=== PATIENT | male | born 1975 | race Caucasian/White ===

== ENCOUNTER 2018-09-11 11:23 | Outpatient (CLI) | payer SELFPAY ==
--- NOTE | 2018-09-11 12:06 | PC.NURSE ---
HERE FOR DOT PHYSICAL
== END 2018-09-11 12:25 | disposition home or self-care (01) ==
PROVIDERS: Visit Provider Nurse Practitioner Family
DX: Z02.4 Encounter for examination for driving license (principal)

== ENCOUNTER 2020-05-13 08:49 | Emergency (ER) | payer MEDICAID, SELFPAY ==
--- NOTE | 2020-05-13 08:55 | HMH.EDGENADL ---
ED Disposition Clinical Impression: Contusion of left shoulder Qualifiers: Encounter type: initial encounter Qualified Code(s): S40.012A - Contusion of left shoulder, initial encounter Rotator cuff injury Qualifiers: Encounter type: initial encounter Laterality: left Qualified Code(s): S46.002A - Unspecified injury of muscle(s) and tendon(s) of the rotator cuff of left shoulder, initial encounter Disposition: Home, Self-Care Condition on Discharge: Good Instructions: DI for Rotator Cuff Injury, How to Use a Sling Additional Instructions: Sling, ice 30 minutes 4-5 times a day. Follow-up with orthopedics, Dr. Duenas. Call for appointment. Ibuprofen or [place] for pain. Additional instructions for CONTROLLED SUBSTANCES: You have been prescribed a medication that is a controlled substance. Controlled substances include pain medications known as opiates and sedative nerve medications known as benzodiazepines. Tramadol, fioricet, and gabapentin are also controlled substances. Some common opiates include: Codeine (such as Tylenol #3) Hydrocodone (Vicodin, Lortab, Lorcet, [place]) Oxycodone (Percocet, Percodan, Oxycodone, Oxy IR) Some common benzodiazepines include: Diazepam (Valium) Lorazepam (Ativan) Alprazolam (Xanax) Clonazepam (Klonopin) Oxazepam (Serax) All of these controlled substances are highly addictive and frequently abused. Misuse can and frequently does lead to addiction as well as overdose and . Medication should be stored in a locked cabinet or other secure storage unit. Do not store the medication in a motor vehicle. Short term supplies, 3 days or less, are prescribed because of the highly addictive nature of the medication. Any of the controlled substance medication NOT taken should be disposed of properly and NOT SAVED. The recommended method of disposing of unused medications is: Place the medicines in a sealable plastic bag. If the medicine is a solid, crush it or add water to dissolve it. Add something undesirable (cat litter, coffee grounds, etc.) Dispose of sealed bag in household trash Do not flush or pour unused medicines down a sink or drain. Controlled substances should not be shared, given away or sold. Because of the addictive nature and frequent abuse, these medications are sometimes stolen. These medications should be kept in a safe place where they cannot be stolen. Do not keep them in your car or purse. Lost or stolen prescriptions for controlled substances WILL NOT BE REFILLED in this emergency department, regardless of whether a police report was filed. Prescriptions: Hydrocod/Acet 5/325 mg [[place] 5/325mg tablet] 1 tab PO Q6HP PRN #10 tab PRN Reason: Pain Transmission Status: Sent to [facility] Ibuprofen [Ibuprofen 800mg Tab] 800 mg PO Q8HP PRN #15 tab PRN Reason: Moderate Pain Transmission Status: Pending to [facility] Referrals: Wilbert Sparks MD [Primary Care Provider] - Cachorro Duenas MD [Staff Physician] - - Critical Care Critical Care Time: No Attestation: On , the high probability of a clinically significant, sudden or life threatening deterioration of the following system(s) required my full and direct attention, intervention and personal management. The time I documented below is in addition to time spent performing reported procedures but includes the following listed in this critical care notation. Medical Decision Making - Binh Inquiry Pt receiving controlled substance: Yes Binh was queried for this patient: Yes Reference #:: [id number] Risks and benefits of using a controlled substance: were discussed with pt by me Comment: 0 rxs. Vital Signs: 05/13/20 08:59 Temperature 98.3 F Temperature Source Oral Pulse Rate [Left Brachial] 66 Respiratory Rate 16 Blood Pressure [Right Arm] 143/98 H Blood Pressure Mean [Right Arm] 113 Blood Pressure Position [Right Arm] Sitting 02 Sat by Pulse Oximetry 98 Oxygen Deli
[2020-05-13 08:59] VITALS: BP 143/98; PULSE 66; RESP 16; TEMP 36.8; O2SAT 98; BMI 25.0
--- NOTE | 2020-05-13 09:02 | XR_ITS ---
PROCEDURE: XR SHOULDER LT MIN 2V CLINICAL INDICATION: injury Posttraumatic pain COMPARISON: [id number] VIEWS from 07/27/2016 FINDINGS: No acute fracture or dislocation. Small sub chondral cyst is present at the distal aspect of the clavicle. IMPRESSION: No acute findings. Dictated by: Adolph Bhagat MD 05/13/2020 11:40 Electronically signed by Adolph Bhagat MD in [place] 05/13/2020 11:40
--- NOTE | 2020-05-13 09:19 | PC.NURSE ---
Pt to rad
[2020-05-13 09:51] VITALS: BP 172/74; PULSE 78; RESP 16; TEMP 36.6; O2SAT 98
== END 2020-05-13 09:58 | disposition home or self-care (01) ==
PROVIDERS: Emergency Provider Emergency Medicine; PCP Internal Medicine Adolescent Medicine
DX: S46.002A Unspecified injury of muscle(s) and tendon(s) of the rotator cuff of left shoulder, initial encounter (principal); W55.12XA Struck by horse, initial encounter; Y92.79 Other farm location as the place of occurrence of the external cause; E78.5 Hyperlipidemia, unspecified; I10 Essential (primary) hypertension; E03.9 Hypothyroidism, unspecified; Z87.442 Personal history of urinary calculi
CPT/HCPCS: 73030; 99283

== ENCOUNTER → 2020-06-02 13:13 | Outpatient (CLI) | payer MEDICAID, SELFPAY ==
--- NOTE | 2020-06-02 13:13 | MR_ITS ---
PROCEDURE: MR SHOULDER LT WO CON CLINICAL INDICATION: left shoulder rotator cuff injury Horse fell on patient x2 wks. Some pain when raising arm above head. Pain when lifting weight. Prior X-Ray 05-13-20 COMPARISON: XR SHOULDER LT MIN 2V from 05/13/2020 TECHNIQUE: Routine multiplanar multi echo sequences are performed without gadolinium enhancement. FINDINGS: There are osteoarthritic changes of the acromioclavicular joint with subacromial stenosis with a subacromial space measuring approximately 5 mm. There is some impingement upon the superior aspect the musculotendinous junction of the supraspinatus from bony hypertrophy at the acromioclavicular joint. The infraspinatus tendon is intact. Tendinopathy/tendinosis suspected at the supraspinatus tendon with focal increased T2 signal involving the deep layers of the distal aspect of the supraspinatus tendon at the greater tubercle consistent with a partial tear. A full-thickness or complete tear is not felt to be present. There is no evidence of tendon retraction. The subscapularis and teres minor tendons are intact. No obvious labral tear. The bicipital tendon is in place. No fracture or bone bruise. IMPRESSION: Partial tear of the distal aspect of the supraspinatus tendon with subacromial stenosis and impingement upon the musculotendinous junction of the supraspinatus. Dictated by: Adolph Bhagat MD 06/03/2020 11:39 Electronically signed by Adolph Bhagat MD in [place] 06/03/2020 11:39
== END ==
PROVIDERS: PCP Internal Medicine Adolescent Medicine; Visit Provider Orthopaedic Surgery
DX: S46.002A Unspecified injury of muscle(s) and tendon(s) of the rotator cuff of left shoulder, initial encounter (principal)
CPT/HCPCS: 73221

== ENCOUNTER 2020-07-09 09:00 | Outpatient (RCR) | payer MEDICAID, SELFPAY ==
--- NOTE | 2020-06-30 11:59 | HMH.PTOPEV ---
PT Outpatient Evaluation Rehab PT Outpatient Evaluation Start: 06/30/20 11:32 Freq: Status: Active Protocol: Document 06/30/20 11:33 OSCAR (Rec: 06/30/20 11:58 [email or web address] [id number]) Electronically Signed By Vincenzo Cid, PT 06/30/20 11:33 Outpatient Therapy Subjective History Subjective History Pt. is a 44 year old male who presents to outpatient PT clinic w/ complaints of activity dependent and subacute LUE shldr. P! of traumatic onset for 1 month. Pt. reports I lost a fight with a horse. Pt . reports his arm(LUE) being jerked in an upward motion while holding onto a horses' halter. Recent diagnostic imaging positive for partial tear of the distal aspect of supraspinatus tendon, SA stenosis, and an impingement upon the musculotendinous junction of the supraspinatus. Pt. reports symptom relief post injection. Pt. RTMD 08/19. 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 Current medications included for Hypertension, Hyperlipidemia, and my thyroid (pt. unable to recall prescription names at this time). PMH includes Hypertension, Hyperlipidemia, and extracorporeal shock wave lithotripsy or ESWL. Chief Complaint Pain Symptom Type Ache,Dull Symptoms Relieved By Rest/Positioning,Ice Symptoms Aggravated By Lifting Prior Functional Limitations None Current Functional Limitations Reaching,Lifting,Driving, Sleeping Symptom Description Activity Dependent Level of pain today (0-10) 0 Pain scale - at its best (0-10) 0 Pain scale - at its worst (0-10) 7 Shoulder/Elbow Eval Shoulder Objective Measurements Palpation Tenderness tenderness shoulder exam standard left tenderness over the bicipital tendon left shoulder exam standard tenderness over the SA bursa shoulder left exam standard Shoulder Palpat
== END 2020-07-28 12:05 | disposition home or self-care (01) ==
LOC: PT.CARL 09:00
PROVIDERS: PCP Internal Medicine Adolescent Medicine; Visit Provider Orthopaedic Surgery
DX: S49.92XA Unspecified injury of left shoulder and upper arm, initial encounter (principal); M75.112 Incomplete rotator cuff tear or rupture of left shoulder, not specified as traumatic; M75.52 Bursitis of left shoulder; M75.42 Impingement syndrome of left shoulder; M67.912 Unspecified disorder of synovium and tendon, left shoulder
CPT/HCPCS: 97014; 97110; 97163; G0283

== ENCOUNTER 2022-07-05 09:36 | Emergency (ER) | payer MEDICAID, SELFPAY ==
[2022-07-05 09:37] VITALS: BP 169/97; PULSE 60; RESP 18; TEMP 36.6; O2SAT 99; BMI 26.9
[2022-07-05 09:41] VITALS: BP 169/97; PULSE 52; RESP 18; O2SAT 98
[2022-07-05 10:01] VITALS: BP 135/79; PULSE 51; RESP 18; O2SAT 97
--- NOTE | 2022-07-05 10:02 | PC.NURSE ---
LULU HOLLAND at
--- NOTE | 2022-07-05 10:05 | CT_ITS ---
FINAL REPORT CLINICAL HISTORY: pain, no injury c/o lt side neck pain FINDINGS: Axial CT images of the cervical spine were obtained without contrast. Sagittal and coronal reformatted images were also obtained. This study was performed with techniques to keep radiation doses as low as reasonably achievable (ALARA). Individualized dose reduction techniques using automated exposure control or adjustment of mA and/or kV according to the patient's size were employed. There is no evidence of fracture or dislocation. There is mild kyphosis centered at C4. There is mild and moderate degenerative change. There is no evidence of canal stenosis. No paraspinous soft tissue abnormality is seen. Limited images of the upper thorax are unremarkable. C2-3: No significant central canal stenosis or neural foraminal narrowing. C3-4: A disc osteophyte complex is present with moderate right and severe left neural foraminal narrowing. C4-5: An annular disc bulge is present. Bilateral uncovertebral osteophytes are present with mild right neural foraminal narrowing. C5-6: A disc osteophyte complex is present with severe bilateral neural foraminal narrowing. C6-7: An annular disc bulge is present with mild bilateral neural foraminal narrowing. C7-T1: No significant central canal stenosis or neural foraminal narrowing. IMPRESSION: Multilevel degenerative disc disease and spondylosis with areas of neural foraminal narrowing. Reviewed, Interpreted and Dictated by Reza Rogers III, MD Transcribed by Brooklyn Peña Authenticated and [facility]
--- NOTE | 2022-07-05 10:14 | PC.NURSE ---
meds given no new complaints , waiting for radiology
--- NOTE | 2022-07-05 10:24 | PC.NURSE ---
pt gone to ct
--- NOTE | 2022-07-05 10:24 | HMH.EDNECK ---
ED Disposition Clinical Impression: Strain of neck muscle Qualifiers: Encounter type: initial encounter Qualified Code(s): S16.1XXA - Strain of muscle, fascia and tendon at neck level, initial encounter Disposition: Home, Self-Care Condition on Discharge: Good Instructions: Neck Sprain Prescriptions: Ibuprofen [Ibuprofen 800mg Tablet] 800 mg PO TIDP PRN #20 tab PRN Reason: Moderate Pain Transmission Status: Pending to [facility] methocarbamoL [Methocarbamol] 750 mg PO QID 7 Days #28 tab Transmission Status: Pending to [facility] Referrals: Provider,Referral, [Primary Care Provider] - - Critical Care Critical Care Time: No Attestation: On 07/05/22, the high probability of a clinically significant, sudden or life threatening deterioration of the following system(s) required my full and direct attention, intervention and personal management. The time I documented below is in addition to time spent performing reported procedures but includes the following listed in this critical care notation. Medical Decision Making - Medical Records Medical records reviewed: Yes: I reviewed the patient's medical records. - Binh Inquiry Pt receiving controlled substance: No Vital Signs: 07/05/22 09:37 07/05/22 09:41 07/05/22 10:01 Temperature 97.9 F Temperature Source Oral Pulse Rate 52 L 51 L Pulse Rate [Radial] 60 Respiratory Rate 18 18 18 Blood Pressure 169/97 H 135/79 Blood Pressure [Right Arm] 169/97 H Blood Pressure Mean 121 97 Blood Pressure Mean [Right Arm] 121 Blood Pressure Source [Right Arm] Automatic Cuff Blood Pressure Position [Right Arm] Sitting 02 Sat by Pulse Oximetry 99 98 97 Oxygen Delivery Method Room Air 07/05/22 11:00 07/05/22 11:30 Temperature Temperature Source Pulse Rate 42 L 42 L Pulse Rate [Radial] Respiratory Rate Blood Pressure 131/74 128/72 Blood Pressure [Right Arm] Blood Pressure Mean 96 90 Blood Pressure Mean [Right Arm] Blood Pressure Source [Right Arm] Blood Pressure Position [Right Arm] 02 Sat by Pulse Oximetry 95 96 Oxygen Delivery Method Orders (Tests/Meds): ED MEDICATIONS Discontinued Medications Generic Name Dose Route Start Last Admin Trade Name Freq PRN Reason Stop Dose Admin Ibuprofen 800 mg 07/05/22 10:05 07/05/22 10:12 Ibuprofen 400 Mg Tablet PO 07/05/22 10:06 800 mg ONCE ONE Administration Methocarbamol 1,000 mg 07/05/22 10:05 07/05/22 10:12 Methocarbamol 500mg Tablet PO 07/05/22 10:06 1,000 mg ONCE STA Administration - CT Data CT Scan: C-Spine Time Received: 11:[address] Reviewed: Yes: I have reviewed the patient's CT results, I have viewed the radiologist's interpretation Findings Narrative: IMPRESSION: Multilevel degenerative disc disease and spondylosis with areas of neural foraminal narrowing. - Reevaluation(s) Time: 11:49 Reevaluation #1: On reevaluation, patient is feeling better. CT did show some degenerative changes, however no acute process. Patient be placed on short course analgesia and muscle relaxers. Needs follow-up with PCP in 48 hours. Given strict return precautions. Verbalized understanding. Medical Decision Narrative: 46-year-old male presenting with some left-sided neck pain. Findings are consistent with torticollis likely secondary to muscle strain. There is no obvious deformity. No neurologic deficit. Patient treated symptomatically. Work-up initiated. Neck Pain/Injury HPI - General Chief Complaint: Neck Pain/Injury Stated Complaint: Neck pain Time Seen by Provider: 07/05/22 09:40 Limitations: No Limitations Description of Symptoms (Recalled from ER Triage Doc. by RN): PT REPORTS POPPING HIS NECK ON TUESDAY. CONTINUES TO HAVE PAIN WITH MOVEMENT - History of Present Illness HPI Narrative: 46-year-old male presented to the emergency department with some neck pain on his left side. The patient states that
--- NOTE | 2022-07-05 10:25 | PC.NURSE ---
PT TO XR AT THIS TIME
--- NOTE | 2022-07-05 10:31 | PC.NURSE ---
pt back from CT
[2022-07-05 11:00] VITALS: BP 131/74; PULSE 42; O2SAT 95
[2022-07-05 11:30] VITALS: BP 128/72; PULSE 42; O2SAT 96
--- NOTE | 2022-07-05 11:33 | PC.NURSE ---
rounded on pt, no needs at this time
[2022-07-05 11:57] VITALS: BP 128/72; PULSE 51; RESP 18; TEMP 36.6; O2SAT 96
== END 2022-07-05 11:58 | disposition home or self-care (01) ==
PROVIDERS: Emergency Provider Emergency Medicine
DX: S16.1XXA Strain of muscle, fascia and tendon at neck level, initial encounter (principal); M50.33 Other cervical disc degeneration, cervicothoracic region; I10 Essential (primary) hypertension; E78.5 Hyperlipidemia, unspecified; E07.9 Disorder of thyroid, unspecified; M79.10 Myalgia, unspecified site; Z79.1 Long term (current) use of non-steroidal anti-inflammatories (NSAID); Z79.899 Other long term (current) drug therapy
CPT/HCPCS: 72125; 99285

== ENCOUNTER → 2022-08-04 06:52 | Outpatient (CLI) | payer MEDICAID, SELFPAY ==
[2022-08-04 18:40] LABS: Basophils # 0.1 K/mm3 (0-0.2); Basophils % 1.4 % (0.1-2.0); Eosinophils # 0.3 K/mm3 (0.0-0.4); Eosinophils % 4.3 % (0.1-12.0); Hematocrit 46.9 % (42.0-52.0); Hemoglobin 14.7 g/dL (14.1-18.0); Lymphocytes # 2.2 K/mm3 (0.7-4.5); Lymphocytes % 28.9 % (10-50); Mean Corpuscular HGB Conc 31.3 g/dL (31.8-35.4); Mean Corpuscular Volume 92.8 fl (80-94); Mean Platelet Volume 9.2 fl (7.4-10.4); Monocytes # 0.6 K/mm3 (0.1-1.0); Monocytes % 7.5 % (1.7-9.3); Neutrophils # 4.5 K/mm3 (1.8-7.8); Neutrophils % 57.9 % (37.0-80.0); Platelet Count 408 K/mm3 (142-424); Red Blood Count 5.06 M/mm3 (4.60-6.20); Red Cell Distribution Width 13.1 % (11.5-17.5); White Blood Count 7.8 K/mm3 (4.8-10.8)
[2022-08-04 18:47] LABS: Alanine Aminotransferase 25 U/L (12-78); Albumin Level 4.4 g/dl (3.5-5.0); Albumin/Globulin Ratio 1.6 (1.1-1.8); Alkaline Phosphatase 62 U/L (38-126); Anion Gap 12.2 mEq/L (5-15); Aspartate Amino Transferase 45 U/L (17-59); Bilirubin,Total 0.5 mg/dl (0.2-1.3); Blood Urea Nitrogen 17 mg/dl (9-20); Calcium 9.1 mg/dl (8.4-10.2); Carbon Dioxide 29 mmol/L (22.0-30.0); Chloride 105 mmol/L (98-107); Chol/HDL Ratio 6.9 (1-3.5); Cholesterol 221 mg/dl (140-200); Estimated Glomerular Filt Rate 72 ml/min (>60); GFR (African American) 87 ML/MIN (>60); Globulin 2.7 g/dL (1.3-3.2); Glucose 77 mg/dl (74-100); HDL Cholesterol 32 mg/dl (40-60); Potassium 4.2 mmoL/L (3.5-5.1); Sodium 142 mmol/L (136-145); Total Protein,Serum 7.1 g/dl (6.3-8.2); Triglycerides 168 mg/dl (30-150); VLDL Cholesterol 34 mg/dL (0-40)
[2022-08-06 09:13] LABS: Direct LDL Cholesterol 142 mg/dL (100-129)
== END ==
PROVIDERS: PCP Family Medicine; Visit Provider Student in an Organized Health Care Education/Training Program
DX: I10 Essential (primary) hypertension (principal); E03.9 Hypothyroidism, unspecified; E78.5 Hyperlipidemia, unspecified; Z12.5 Encounter for screening for malignant neoplasm of prostate; Z76.89 Persons encountering health services in other specified circumstances
CPT/HCPCS: 80053; 80061; 84443; 85025; G0103

== ENCOUNTER → 2022-10-04 12:59 | Outpatient (CLI) | payer MEDICAID, SELFPAY ==
--- NOTE | 2022-10-04 13:00 | CA_ITS ---
APPROVED REPORT Exam: Exercise Treadmill Technologist: Ella Gil, Ht: 5 ft 7 in Wt: 171 lbs BSA: 1.89 m2 HR: 46 bpm BP: 154/95 mmHg Medical History Medications: Amlodipine,,,,, Omeprazole,,,,, Levothyroxine,,,,, Losartan,,,,, Atorvastatin,,,,, Montelukast,,,,, Vit B12,,,,, FeNOfibrate nanocrystallized,,,,, Stress Test Details Test: Jered HR Resting HR: 53 bpm Max Heart Rate (APMHR): 173.055204 bpm Max HR Achieved: 171 bpm Target HR (85% APMHR): 147.095112 bpm % of APMHR: 98.84 Recovery HR: 70 bpm BP Resting BP: 137/83 mmHg Max BP: 198/88 mmHg Recovery BP: 148.0/87.0 mmHg ECG Resting ECG: Sinus Bradycardia Clinical Reason for Termination: Leg Pain Exercise duration: 13:05 min Highest Stage Achieved: IV Exercise capacity: 14.8 METs Stress ECG Conclusion 13 Min Max HR: 171 % of PM: 116 Max BP: 160/100 METs: 14.8 Test stopped due to Legs tired Symptoms: No CP Arrhythmias/Ectopy: one PVC ST-T Changes: <1.5mm ST Segment depression at peak stress. Conclusion: Negative stress test. Test Summary REST . . . . . . . Sitting REST . . . . . . . Standing REST 03:54 0.0 1.2 53 . 137/ 83 . . Stage 1 01:00 10.0 1.7 89 . . . . Stage 1 02:00 10.0 1.7 81 . . . . Stage 1 03:00 10.0 1.7 83 . 152/ 84 . . Stage 2 01:00 12.0 2.5 82 . . . . Stage 2 02:00 12.0 2.5 84 . . . . Stage 2 03:00 12.0 2.5 102 . 160/ 90 . . Stage 3 01:00 14.0 3.4 102 . . . . Stage 3 02:00 14.0 3.4 105 . . . . Stage 3 03:00 14.0 3.4 112 . 160/100 . . Stage 4 01:00 16.0 4.2 125 . . . . Stage 4 02:00 16.0 4.2 141 . . . . Stage 4 03:00 16.0 4.2 146 . 158/ 98 . . Stage 5 01:00 18.0 5.0 169 . . . . Stage 5 01:05 18.0 5.0 171 . . . Stop exercise at 13:05 RECOVERY 01:00 0.0 0.0 133 . . . . RECOVERY 02:00 0.0 0.0 70 . . . . RECOVERY 03:00 0.0 0.0 80 . . . . RECOVERY 04:00 0.0 0.0 70 . . . . RECOVERY 05:00 0.0 0.0 70 . 148/ 87 . . RECOVERY 05:19 0.0 0.0 76 . 148/ 87 . . Electronically signed by : Pedrito Palm MD 10/04/2022 14:31:53
--- NOTE | 2022-10-04 13:05 | CA_ITS ---
APPROVED REPORT EXAM: Comprehensive 2D, Doppler, and color-flow Echocardiogram Brain Wave Technician: Racheal Angulo RVT Ht: 5 ft 7 in Wt: 171lbs BSA: 1.89 BP: 126/78 mmHg Indications: CP,GERD,HTN,HLD,BRADYCARDIA 2D Dimensions LVOT 2.18 cm (M/F) 1.5-2.5 LA Volume 41.30 mL LA Volume Index 21.85 mL/m2 (M/F) 16-34 M-Mode Dimensions RVDd 1.79 cm (0.9-2.6) LA Diam 3.96 cm (1.9-4.0) LVDd 5.63 cm (3.5-5.7) Ao Diam 2.74 cm (2.0-3.7) LVDs 3.31 cm (3.5-5.7) IVSd 0.49 cm (0.6-1.1) PWd 0.57 cm (0.6-1.1) EF (Teich) 71.40% FS 41.20% EDV (Teich) 155.60 mL TAPSE 2.54 (<1.7) ESV (Teich) 44.50 mL LV Diastology E Decel Time 150.00 (160-240 msec) E/A Ratio 1.2 MED E' 7.70 (< 7 cm/sec) E'/MED E' Ratio 11.43 (>14) LAT E' 9.20 (<10 cm/sec) E/LAT E' Ratio 9.57 (>14) Aortic Valve AO Peak GR. 4.10 mmHg Mitral Valve MV E Max Mane. 88.00 (40-130 cm/s) MV A Velocity 71.00 (40-130 cm/s) E/A Ratio 1.24 MV Decel. Time 150.00 (160-240 ms) MV PHT 44.00 ms Pulmonary Valve PV Peak Velocity 86.00 (50-150 cm/s) Tricuspid Valve TR P. Velocity 236.00 cm/s RAP Estimate 10.00 mmHg RVSP 32.20 mmHg Left Ventricle Left atrium is normal size, left ventricle is normal size, estimated ejection fraction 55% with no regional wall motion abnormality, diastolic parameters are within normal range. Right Ventricle Right atrium and right ventricle are normal size and contractility. Aortic Valve Aortic valve is grossly normal there is no aortic stenosis or aortic insufficiency. Mitral Valve Mitral valve grossly normal, there is trace mitral regurgitation. Tricuspid Valve Tricuspid valve grossly normal, there is trace tricuspid regurgitation, tricuspid regurgitation jet velocity is inadequate for calculation of the right ventricular systolic pressure. Pulmonic Valve Pulmonic valve is poorly visualized. Great Vessels Aortic root is normal size. Inferior vena cava normal size with normal inspiratory collapse. Pericardium No significant pericardial effusion noted. Conclusion 1. Normal left ventricular size, preserved left ventricular systolic function, estimated ejection fraction 55% with no regional wall motion abnormality, diastolic parameters are within normal range. 2. Trace mitral and tricuspid regurgitation. 3. No significant pericardial effusion noted. 4. Inferior vena cava is normal size with normal inspiratory collapse. Electronically signed by : Pedrito Palm MD 10/04/2022 13:58:27
== END ==
PROVIDERS: PCP Family Medicine; Visit Provider Nurse Practitioner Family
DX: R07.9 Chest pain, unspecified (principal)
CPT/HCPCS: 93017; 93306

== ENCOUNTER → 2022-10-25 20:43 | Outpatient (CLI) | payer MEDICAID, SELFPAY ==
[2022-10-25 21:09] LABS: Alanine Aminotransferase 42 U/L (12-78); Albumin Level 4.7 g/dl (3.5-5.0); Albumin/Globulin Ratio 1.9 (1.1-1.8); Alkaline Phosphatase 63 U/L (38-126); Anion Gap 19.8 mEq/L (5-15); Aspartate Amino Transferase 47 U/L (17-59); Bilirubin,Total 0.5 mg/dl (0.2-1.3); Blood Urea Nitrogen 19 mg/dl (9-20); Calcium 9.9 mg/dl (8.4-10.2); Carbon Dioxide 29 mmol/L (22.0-30.0); Chloride 97 mmol/L (98-107); Chol/HDL Ratio 3.7 (1-3.5); Cholesterol 168 mg/dl (140-200); Estimated Glomerular Filt Rate 54 ml/min (>60); GFR (African American) 66 ML/MIN (>60); Globulin 2.5 g/dL (1.3-3.2); Glucose 94 mg/dl (74-100); HDL Cholesterol 46 mg/dl (40-60); Potassium 3.8 mmoL/L (3.5-5.1); Sodium 142 mmol/L (136-145); Total Protein,Serum 7.2 g/dl (6.3-8.2); Triglycerides 70 mg/dl (30-150); VLDL Cholesterol 14 mg/dL (0-40)
[2022-10-25 21:20] LABS: Direct LDL Cholesterol 103.92 mg/dL (100-129)
[2022-10-25 21:26] LABS: Free T4 (Free Thyroxine) 0.89 ng/dl (0.78-2.19)
[2022-10-25 22:49] LABS: Hemoglobin A1C 5.8 % (4.0-6.0)
== END ==
PROVIDERS: PCP Family Medicine; Visit Provider Family Medicine
DX: I10 Essential (primary) hypertension (principal); E78.2 Mixed hyperlipidemia; E11.9 Type 2 diabetes mellitus without complications
CPT/HCPCS: 80053; 80061; 83036; 84439; 84443

== ENCOUNTER 2023-01-25 16:17 | Emergency (ER) | payer MEDICAID, SELFPAY ==
[2023-01-25 16:19] VITALS: BP 139/85; PULSE 74; RESP 19; TEMP 36.9; O2SAT 99; BMI 26.7
--- NOTE | 2023-01-25 16:27 | CT_ITS ---
PROCEDURE INFORMATION: Exam: CT Abdomen And Pelvis With Contrast Exam date and time: 01/25/2023 5:15 PM Age: 47 years old Clinical indication: Localized; Patient HX: Right sided abdominal pain. Fell today. Delayed images done due to appearance of right kidney area. ; Additional info: Fall TECHNIQUE: Imaging protocol: Computed tomography of the abdomen and pelvis with contrast. Radiation optimization: All CT scans at this facility use at least one of these dose optimization techniques: automated exposure control; mA and/or kV adjustment per patient size (includes targeted exams where dose is matched to clinical indication); or iterative reconstruction. Contrast material: ISOVUE; Contrast volume: 75 ml; Contrast route: IV; REPORTING DATA: Count of CT and Cardiac NM exams in prior 12 months: This patient has received [address] and 0 known cardiac nuclear medicine studies in the 12 months prior to the current study. COMPARISON: CR KUB KUB (SINGLE VIEW) 10/26/2016 12:29 PM FINDINGS: Lungs: Lung bases are unremarkable. Liver: No focal hepatic lesions. Gallbladder and bile ducts: Gallbladder is distended without radiopaque cholelithiasis. No biliary ductal dilation. Pancreas: No peripancreatic fluid stranding. No main pancreatic ductal dilation. Spleen: No splenomegaly. Adrenal glands: The adrenal glands are normal. Kidneys and ureters: There is a right renal cyst measuring 8.4 by 10.2 cm. Internal blood clot noted. There is an intraluminal hyperenhancing structure which may represent contrast extravasation versus a pseudoaneurysm (series 3, image 64 series 6, image 68). There is moderate stranding along the perirenal fat suspicious for partial decompression in the right retroperitoneum. Nephrograms are symmetric. No nephrolithiasis or hydroureteronephrosis on either side. No solid lesions. There are variably-sized right renal cysts. There is symmetric contrast excretion Stomach and bowel: No bowel wall thickening or distention. Appendix: No evidence of appendicitis. Intraperitoneal space: Trace amount of pelvic free fluid Vasculature: Aorta is nonaneurysmal. Lymph nodes: No evidence of retroperitoneal or mesenteric lymphadenopathy. Urinary bladder: Urinary bladder is unremarkable. Reproductive: Prostate is unremarkable. Bones/joints: Unremarkable. No acute fracture. Soft tissues: Unremarkable. IMPRESSION: There is a large right renal cyst without internal clot. There is an intraluminal hyperenhancing structure which may represent contrast extravasation versus a pseudoaneurysm (series 3, image 64 series 6, image 68). There is moderate stranding along the perirenal fat suspicious for partial decompression in the right retroperitoneum. COMMENTS: Consistent with the [employer]'s Incidental Findings Committee white paper (J Am Radha Radiol 2018): Any incidental renal lesion less than 1 cm or classified as too small to characterize, or any incidental cystic renal lesion characterized as simple-appearing, is likely benign. No follow-up imaging is recommended for these lesions per consensus recommendations based on imaging criteria.
--- NOTE | 2023-01-25 16:28 | HMH.EDGENADL ---
Discharge Plan Disposition Patient Disposition: Home, Self-Care Condition: Good Prescriptions Prescriptions: No Action cyanocobalamin (vitamin B-12) 500 mcg tablet 500 mcg PO DAILY Qty: 90 3RF losartan 100 mg tablet 100 mg PO DAILY Qty: 90 3RF montelukast 10 mg tablet 10 mg PO DAILY Qty: 90 3RF omeprazole 20 mg capsule,delayed release(DR/EC) 20 mg PO DAILY Qty: 90 3RF amitriptyline 10 mg tablet 10 mg PO TID Qty: 90 1RF atorvastatin 40 mg tablet 40 mg PO DAILY amlodipine 5 mg tablet 5 mg PO DAILY aspirin [Adult Aspirin Regimen] 81 mg tablet,delayed release (DR/EC) 81 mg PO DAILY fenofibrate nanocrystallized 145 mg tablet 145 mg PO DAILY levothyroxine 100 mcg capsule 100 mcg PO DAILY Referrals Follow up/Referrals: Bernabe Fowler MD [Primary Care Provider] - See instructions Activity Restrictions/Add. Instructions Additional Instructions/Restrictions: Tylenol as needed for discomfort. Avoid exertion for the next few days. You will be following up with the urologist Dr. Zurita, you can expect a phone call from his office. Clinical Impressions Clinical Impression: Abdominal wall contusion, Renal cyst Instructions Patient Instructions: DI for Acute Abdominal Pain Discharge ED Provider: Eliel Garcia General Adult HPI General Chief complaint: Abdominal Pain Stated complaint: knot in lower stomach Time Seen by Provider: 01/25/23 16:22 Mode of Arrival: Ambulatory Source of Information: Patient Limitations: No Limitations Description of Symptoms (Recalled from ER Triage Doc. by RN): 47 M presents with right groin pain that radiates up into his RLQ area. Patient states he was seen at his PCP prior to arrival and they have sent him to the ER for a CT scan to rule-out a possible hernia. Patient denies nausea, vomiting, diarrhea. No dysuria or hematuria. History of Present Illness HPI narrative: Patient presents with abdominal pain. After having fallen off of a tractor earlier today he was seen by his primary care provider referred here for further evaluation and consideration of CT of the abdomen. Patient describes the pain as moderate he denies vomiting although did have some nausea earlier in the day. He denies hematuria. He denies additional injuries. He denies head or neck trauma. Related Data Home Medications Medication Instructions Recorded Confirmed amlodipine 5 mg tablet 5 mg PO DAILY Heart 01/25/23 01/25/23 aspirin 81 mg tablet,delayed 81 mg PO DAILY Heart 01/25/23 01/25/23 release (Adult Aspirin Regimen) atorvastatin 40 mg tablet 40 mg PO DAILY Cholesterol 01/25/23 01/25/23 fenofibrate nanocrystallized 145 145 mg PO DAILY Supplement 01/25/23 01/25/23 mg tablet levothyroxine 100 mcg capsule 100 mcg PO DAILY Thyroid 01/25/23 01/25/23 Previous Rx's Medication Instructions Recorded cyanocobalamin (vitamin B-12) 500 500 mcg PO DAILY supplement #90 08/04/22 mcg tablet tabs losartan 100 mg tablet 100 mg PO DAILY HTN #90 tabs 08/04/22 montelukast 10 mg tablet 10 mg PO DAILY allergies #90 tabs 08/04/22 omeprazole 20 mg capsule,delayed 20 mg PO DAILY GERD #90 caps 08/04/22 release amitriptyline 10 mg tablet 10 mg PO TID for foot numbness and 01/06/23 tingling #90 tabs Allergies Allergy/AdvReac Type Severity Reaction Status Date / Time No Known Allergies Allergy Verified 01/25/23 15:17 [facility] Disclaimer: The information contained in this section may have been updated after the patient was seen, as this information can be updated by other users. Medical History Atypical chest pain GERD (gastroesophageal reflux disease) Hyperlipidemia Hypertension Hypothyroidism Surgical History Kidney stone Social History Smoking Status: Never smoker second hand exposure: No
--- NOTE | 2023-01-25 16:41 | PC.NURSE ---
Patient NPO. Awaiting chemistry results prior to CT with contrast. Patient updated. Resting, NAD.
[2023-01-25 16:45] LABS: Basophils # 0.1 K/mm3 (0-0.2); Basophils % 0.8 % (0.1-2.0); Eosinophils # 0.2 K/mm3 (0.0-0.4); Eosinophils % 1.6 % (0.1-12.0); Hematocrit 41.4 % (42.0-52.0); Hemoglobin 13.6 g/dL (14.1-18.0); Lymphocytes # 1.5 K/mm3 (0.7-4.5); Lymphocytes % 10.7 % (10-50); Mean Corpuscular Hemoglobin 29.6 pg (27.0-31.2); Mean Corpuscular Volume 89.7 fl (80-94); Mean Platelet Volume 7.8 fl (7.4-10.4); Monocytes # 0.5 K/mm3 (0.1-1.0); Monocytes % 3.8 % (1.7-9.3); Neutrophils # 11.7 K/mm3 (1.8-7.8); Neutrophils % 83.1 % (37.0-80.0); Platelet Count 457 K/mm3 (142-424); Red Blood Count 4.61 M/mm3 (4.60-6.20); Red Cell Distribution Width 12.7 % (11.5-17.5); White Blood Count 14.1 K/mm3 (4.8-10.8)
[2023-01-25 16:48] LABS: Alanine Aminotransferase 51 U/L (12-78); Albumin Level 4.7 g/dl (3.5-5.0); Albumin/Globulin Ratio 1.7 (1.1-1.8); Alkaline Phosphatase 43 U/L (38-126); Anion Gap 7.4 mEq/L (5-15); Aspartate Amino Transferase 44 U/L (17-59); Bilirubin,Total 0.5 mg/dl (0.2-1.3); Blood Urea Nitrogen 21 mg/dl (9-20); Calcium 8.9 mg/dl (8.4-10.2); Carbon Dioxide 25 mmol/L (22.0-30.0); Chloride 109 mmol/L (98-107); Creatinine Clearance Estimated 67 mL/min (50-200); Estimated Glomerular Filt Rate 50 ml/min (>60); GFR (African American) 61 ML/MIN (>60); Globulin 2.7 g/dL (1.3-3.2); Glucose 134 mg/dl (74-100); Lipase 56 U/L (23-300); Potassium 3.4 mmoL/L (3.5-5.1); Sodium 138 mmol/L (136-145); Total Protein,Serum 7.4 g/dl (6.3-8.2)
--- NOTE | 2023-01-25 16:48 | PC.NURSE ---
radiology aware of scan
--- NOTE | 2023-01-25 17:03 | PC.NURSE ---
rounded on pt, no needs at this time
--- NOTE | 2023-01-25 17:13 | PC.NURSE ---
Patient taken to CT for scan
--- NOTE | 2023-01-25 18:25 | PC.NURSE ---
ED doctor on phone with Dr. Zurita at urology
[2023-01-25 19:01] VITALS: BP 123/65; PULSE 63; RESP 16; TEMP 37; O2SAT 99
== END 2023-01-25 19:03 | disposition home or self-care (01) ==
PROVIDERS: Emergency Provider Emergency Medicine; PCP Family Medicine
DX: S30.1XXA Contusion of abdominal wall, initial encounter (principal); N28.1 Cyst of kidney, acquired; K21.9 Gastro-esophageal reflux disease without esophagitis; I10 Essential (primary) hypertension; E78.5 Hyperlipidemia, unspecified; E03.9 Hypothyroidism, unspecified; X58.XXXA Exposure to other specified factors, initial encounter
CPT/HCPCS: 74177; 80053; 83690; 85025; 96360; 99285; Q9967

== ENCOUNTER 2023-01-27 14:04 | Emergency (ER) | payer MEDICAID, SELFPAY ==
[2023-01-27 14:11] VITALS: BP 132/69; PULSE 58; RESP 16; TEMP 37.1; O2SAT 97; BMI 25.8
--- NOTE | 2023-01-27 14:12 | PC.NURSE ---
LULU HOLLAND at for pt radhaal
--- NOTE | 2023-01-27 14:13 | CT_ITS ---
FINAL REPORT TECHNIQUE: Thin section axial images were obtained through the abdomen after intravenous contrast. Reconstruction images were obtained from the axial data. Exam was performed using dose reduction techniques. CLINICAL HISTORY: right scrotal swelling, bruising, trauma , FELL OFF A TRACTOR ON 01/25 , BRUISING TO RIGHT GROIN COMPARISON: 01/25/2023 FINDINGS: The lung bases are clear. The liver is homogeneous. The gallbladder is present. The spleen, adrenal glands, and pancreas are unremarkable. Again identified is a cyst along the inferior right kidney which contains internal hemorrhage/clot measuring 10.4 cm on the coronal images, similar to previous. The previously described small enhancing focus on image 58 is unchanged. The degree of perinephric stranding has increased anteriorly and appears stable posteriorly. There are multiple additional right renal cysts. Abdominal GI tract is without acute abnormality. There is no abdominal lymphadenopathy or ascites. There is abnormal attenuation surrounding the urinary bladder, stable. The distal right ureter is visualized, similar in appearance to prior. There is a small amount of hemoperitoneum in the pelvis, unchanged. There is worsening abnormal attenuation along the right inguinal canal, possibly related to compression of the testicular vein. The appendix is normal. There is no pelvic lymphadenopathy or ascites. No acute osseous abnormalities identified. IMPRESSION: Essentially stable abnormal right kidney with large cyst which has hemorrhaged as well as perinephric stranding and probable increase hemorrhage. Worsening abnormal attenuation in the right groin which may be related to compressed testicular/gonadal veins. Reviewed, Interpreted and Dictated by Krista Maria MD Transcribed by Joie Alberto Authenticated and [facility]
--- NOTE | 2023-01-27 14:14 | PC.NURSE ---
assisted dr rooney at bedside doing a physical exam of possible hernia
--- NOTE | 2023-01-27 14:16 | HMH.EDGENADL ---
Discharge Plan Disposition Patient Disposition: Xfer Other Condition: Serious Prescriptions Prescriptions: No Action cyanocobalamin (vitamin B-12) 500 mcg tablet 500 mcg PO DAILY Qty: 90 3RF losartan 100 mg tablet 100 mg PO DAILY Qty: 90 3RF montelukast 10 mg tablet 10 mg PO DAILY Qty: 90 3RF omeprazole 20 mg capsule,delayed release(DR/EC) 20 mg PO DAILY Qty: 90 3RF amitriptyline 10 mg tablet 10 mg PO TID Qty: 90 1RF atorvastatin 40 mg tablet 40 mg PO DAILY amlodipine 5 mg tablet 5 mg PO DAILY aspirin [Adult Aspirin Regimen] 81 mg tablet,delayed release (DR/EC) 81 mg PO DAILY fenofibrate nanocrystallized 145 mg tablet 145 mg PO DAILY levothyroxine 100 mcg capsule 100 mcg PO DAILY Referrals Follow up/Referrals: Bernabe Fowler MD [Primary Care Provider] - See instructions Clinical Impressions Clinical Impression: Renal cyst, [place], hemorrhage, Blunt abdominal trauma Instructions Patient Instructions: DI for Acute Abdominal Pain Discharge ED Provider: Adelita Berry Adult HPI General Chief complaint: Abdominal Pain Stated complaint: Phys ref, possible hernia Time Seen by Provider: 01/27/23 14:08 Mode of Arrival: Ambulatory Source of Information: Patient Limitations: No Limitations Description of Symptoms (Recalled from ER Triage Doc. by RN): Pt presents from PCP with concerns of discoloration to inginual hernia that he noticed yesterday and has worsened today. 8/10 pain. Denies fever or urinary sx. Denies hx of GI surgery. History of Present Illness HPI narrative: 47-year-old male presenting to the emergency department with abdominal pain, scrotal swelling and bruising. Noticed the bruising yesterday morning when he woke up. It was located on the right side of the scrotum. He has pain that is located in the right lower portion of the abdomen, just below the ribs. On Tuesday, 2 days ago he fell off of a tractor and sustained trauma to his abdomen. He was evaluated emergency department. Was not told of any injuries. He does not take blood thinners. Denies changes in bladder or bowel habits. No hematuria, dysuria, constipation, diarrhea. Denies history of hernias. No prior abdominal surgeries. Related Data Home Medications Medication Instructions Recorded Confirmed amlodipine 5 mg tablet 5 mg PO DAILY Heart 01/25/23 01/27/23 aspirin 81 mg tablet,delayed 81 mg PO DAILY Heart 01/25/23 01/27/23 release (Adult Aspirin Regimen) atorvastatin 40 mg tablet 40 mg PO DAILY Cholesterol 01/25/23 01/27/23 fenofibrate nanocrystallized 145 145 mg PO DAILY Supplement 01/25/23 01/27/23 mg tablet levothyroxine 100 mcg capsule 100 mcg PO DAILY Thyroid 01/25/23 01/27/23 Previous Rx's Medication Instructions Recorded cyanocobalamin (vitamin B-12) 500 500 mcg PO DAILY supplement #90 08/04/22 mcg tablet tabs losartan 100 mg tablet 100 mg PO DAILY HTN #90 tabs 08/04/22 montelukast 10 mg tablet 10 mg PO DAILY allergies #90 tabs 08/04/22 omeprazole 20 mg capsule,delayed 20 mg PO DAILY GERD #90 caps 08/04/22 release amitriptyline 10 mg tablet 10 mg PO TID for foot numbness and 01/06/23 tingling #90 tabs Allergies Allergy/AdvReac Type Severity Reaction Status Date / Time No Known Allergies Allergy Verified 01/27/23 12:57 [facility] Disclaimer: The information contained in this section may have been updated after the patient was seen, as this information can be updated by other users. Medical History Atypical chest pain GERD (gastroesophageal reflux disease) Hyperlipidemia Hypertension Hypothyroidism Surgical History Kidney stone Social History Smoking Status: Never smoker second hand exposure: No alcohol intake: never substance use type: denies use current o
--- NOTE | 2023-01-27 14:24 | PC.NURSE ---
To CT via WC
[2023-01-27 14:45] LABS: Chloride 102 mmol/L (98-107)
[2023-01-27 14:46] LABS: Potassium 3.4 mmoL/L (3.5-5.1); Sodium 139 mmol/L (136-145)
[2023-01-27 14:48] LABS: Basophils # 0.1 K/mm3 (0-0.2); Basophils % 0.5 % (0.1-2.0); Blood Urea Nitrogen 15 mg/dl (9-20); Creatinine Clearance Estimated 91 mL/min (50-200); Eosinophils # 0.3 K/mm3 (0.0-0.4); Eosinophils % 2.2 % (0.1-12.0); Estimated Glomerular Filt Rate 72 ml/min (>60); GFR (African American) 87 ML/MIN (>60); Hematocrit 34.6 % (42.0-52.0); Hemoglobin 11.6 g/dL (14.1-18.0); Lymphocytes # 1.5 K/mm3 (0.7-4.5); Lymphocytes % 11.7 % (10-50); Mean Corpuscular HGB Conc 33.7 g/dL (31.8-35.4); Mean Corpuscular Hemoglobin 30.2 pg (27.0-31.2); Mean Corpuscular Volume 89.7 fl (80-94); Mean Platelet Volume 8.4 fl (7.4-10.4); Monocytes # 0.9 K/mm3 (0.1-1.0); Monocytes % 7.1 % (1.7-9.3); Neutrophils # 9.9 K/mm3 (1.8-7.8); Neutrophils % 78.4 % (37.0-80.0); Platelet Count 385 K/mm3 (142-424); Red Blood Count 3.85 M/mm3 (4.60-6.20); Red Cell Distribution Width 12.5 % (11.5-17.5); White Blood Count 12.7 K/mm3 (4.8-10.8)
[2023-01-27 14:49] LABS: Anion Gap 12.4 mEq/L (5-15); Calcium 8.4 mg/dl (8.4-10.2); Carbon Dioxide 28 mmol/L (22.0-30.0); Glucose 118 mg/dl (74-100)
[2023-01-27 15:00] VITALS: BP 114/66; PULSE 57; O2SAT 96
[2023-01-27 15:01] LABS: INR 1.06 (0.9-1.1); Prothrombin Time 11.4 seconds (10.1-12.5)
[2023-01-27 15:30] VITALS: BP 118/62; PULSE 61; O2SAT 96
--- NOTE | 2023-01-27 15:34 | PC.NURSE ---
Pt requesting oral fluids; will defer until CT read. Patient understands without further complaints.
[2023-01-27 16:00] VITALS: BP 107/66; PULSE 62; O2SAT 96
--- NOTE | 2023-01-27 16:16 | PC.NURSE ---
FS 96
--- NOTE | 2023-01-27 16:21 | PC.NURSE ---
call [facility] to speak to trauma surgeon for a possible renal hemorrhage awaiting call back for them to speak to dr rooney
[2023-01-27 16:30] VITALS: BP 116/70; PULSE 60; O2SAT 97
--- NOTE | 2023-01-27 16:39 | PC.NURSE ---
stacey morgan on phone with [facility] trauma surgeon
--- NOTE | 2023-01-27 17:10 | PC.NURSE ---
updated pt that we were awaiting a call back from [facility]
--- NOTE | 2023-01-27 17:34 | PC.NURSE ---
speaking to [facility] to try and get an update on when we might receive call back from trauma surgeon
--- NOTE | 2023-01-27 17:38 | PC.NURSE ---
pt accepted to ER per Dr. Juarez
--- NOTE | 2023-01-27 17:47 | PC.NURSE ---
notified [facility] of need for transport to ER
--- NOTE | 2023-01-27 17:51 | PC.NURSE ---
Report provided to KEIRY Aponte with [facility].
--- NOTE | 2023-01-27 18:04 | PC.NURSE ---
FS 82
[2023-01-27 18:08] VITALS: BP 118/62; PULSE 61; RESP 16; TEMP 37.1; O2SAT 96
== END 2023-01-27 18:12 | disposition other institution (70) ==
PROVIDERS: Emergency Provider Emergency Medicine; PCP Family Medicine
DX: S39.91XA Unspecified injury of abdomen, initial encounter (principal); S30.22XA Contusion of scrotum and testes, initial encounter; N28.1 Cyst of kidney, acquired; R07.89 Other chest pain; K21.9 Gastro-esophageal reflux disease without esophagitis; E78.5 Hyperlipidemia, unspecified; I10 Essential (primary) hypertension; E03.9 Hypothyroidism, unspecified; V84.4XXA Person injured while boarding or alighting from special agricultural vehicle, initial encounter; Z87.442 Personal history of urinary calculi
CPT/HCPCS: 74177; 80048; 85025; 85610; 99285; Q9967

== ENCOUNTER → 2023-01-28 09:16 | Outpatient (CLI) | payer SELFPAY ==
[2023-05-06 09:43] LABS: COC Drug Screen Collection Only
== END ==
PROVIDERS: PCP Family Medicine; Visit Provider Nurse Practitioner Family
DX: Z79.899 Other long term (current) drug therapy (principal)
CPT/HCPCS: 80305

== ENCOUNTER → 2023-03-14 11:01 | Outpatient (CLI) | payer MEDICAID, SELFPAY ==
[2023-03-14 13:38] LABS: Vitamin B12 723 pg/mL (239-931)
[2023-03-14 13:39] LABS: Folate 4.84 ng/mL
== END ==
PROVIDERS: PCP Family Medicine; Visit Provider Specialist
DX: R20.2 Paresthesia of skin (principal)
CPT/HCPCS: 36415; 82607; 82746

== ENCOUNTER → 2023-08-08 23:33 | Outpatient (CLI) | payer MEDICAID, SELFPAY ==
[2023-08-08 17:24] LABS: Alanine Aminotransferase 60 U/L (12-78); Albumin Level 4.7 g/dl (3.5-5.0); Albumin/Globulin Ratio 1.5 (1.1-1.8); Alkaline Phosphatase 49 U/L (38-126); Anion Gap 12.5 mEq/L (5-15); Aspartate Amino Transferase 51 U/L (17-59); Bilirubin,Total 0.6 mg/dl (0.2-1.3); Blood Urea Nitrogen 18 mg/dl (9-20); Calcium 9.8 mg/dl (8.4-10.2); Carbon Dioxide 30 mmol/L (22.0-30.0); Chloride 104 mmol/L (98-107); Cholesterol 159 mg/dl (140-200); Estimated Glomerular Filt Rate 59 ml/min (>60); GFR (African American) 72 ML/MIN (>60); Globulin 3.1 g/dL (1.3-3.2); Glucose 97 mg/dl (74-100); HDL Cholesterol 32 mg/dl (40-60); Potassium 4.5 mmoL/L (3.5-5.1); Sodium 142 mmol/L (136-145); Total Protein,Serum 7.8 g/dl (6.3-8.2); Triglycerides 94 mg/dl (30-150); VLDL Cholesterol 19 mg/dL (0-40)
[2023-08-08 17:35] LABS: Direct LDL Cholesterol 97.88 mg/dL (100-129)
== END ==
PROVIDERS: PCP Family Medicine; Visit Provider Family Medicine
DX: I10 Essential (primary) hypertension (principal); E78.5 Hyperlipidemia, unspecified
CPT/HCPCS: 80053; 80061

== ENCOUNTER 2024-04-12 10:35 | Outpatient (CLI) | payer MEDICAID, SELFPAY ==
[2024-04-12 16:40] LABS: Basophils # 0.1 K/mm3 (0-0.2); Basophils % 1.7 % (0.1-2.0); Eosinophils # 0.5 K/mm3 (0.0-0.4); Eosinophils % 6.8 % (0.1-12.0); Hematocrit 45.8 % (42.0-52.0); Hemoglobin 14.8 g/dL (14.1-18.0); Lymphocytes # 2.4 K/mm3 (0.7-4.5); Lymphocytes % 30.6 % (10-50); Mean Corpuscular HGB Conc 32.3 g/dL (31.8-35.4); Mean Corpuscular Hemoglobin 30.9 pg (27.0-31.2); Mean Corpuscular Volume 95.7 fl (80-94); Monocytes # 0.5 K/mm3 (0.1-1.0); Monocytes % 6.5 % (1.7-9.3); Neutrophils # 4.3 K/mm3 (1.8-7.8); Neutrophils % 54.4 % (37.0-80.0); Platelet Count 372 K/mm3 (142-424); Red Blood Count 4.79 M/mm3 (4.60-6.20); Red Cell Distribution Width 13.3 % (11.5-17.5); White Blood Count 7.9 K/mm3 (4.8-10.8)
[2024-04-12 16:54] LABS: Alanine Aminotransferase 43 U/L (12-78); Albumin Level 4.5 g/dl (3.5-5.0); Albumin/Globulin Ratio 1.6 (1.1-1.8); Alkaline Phosphatase 39 U/L (38-126); Anion Gap 13.5 mEq/L (5-15); Aspartate Amino Transferase 45 U/L (17-59); Bilirubin,Total 0.7 mg/dl (0.2-1.3); Blood Urea Nitrogen 20 mg/dl (9-20); Calcium 10.1 mg/dl (8.4-10.2); Carbon Dioxide 31 mmol/L (22.0-30.0); Chloride 103 mmol/L (98-107); Chol/HDL Ratio 4.5 (1-3.5); Cholesterol 174 mg/dl (140-200); Estimated Glomerular Filt Rate 54 ml/min (>60); GFR (African American) 65 ML/MIN (>60); Globulin 2.9 g/dL (1.3-3.2); Glucose 95 mg/dl (74-100); HDL Cholesterol 39 mg/dl (40-60); Potassium 4.5 mmoL/L (3.5-5.1); Sodium 143 mmol/L (136-145); Total Protein,Serum 7.4 g/dl (6.3-8.2); Triglycerides 136 mg/dl (30-150); VLDL Cholesterol 27 mg/dL (0-40)
[2024-04-12 17:05] LABS: Direct LDL Cholesterol 106.82 mg/dL (100-129)
== END 2024-04-12 23:59 | disposition home or self-care (01) ==
LOC: LAB.DROPOF 04-13 10:35
PROVIDERS: PCP Family Medicine; Visit Provider Family Medicine
DX: I10 Essential (primary) hypertension (principal); E78.2 Mixed hyperlipidemia; E03.9 Hypothyroidism, unspecified
CPT/HCPCS: 80053; 80061; 84443; 85025

== ENCOUNTER 2024-09-10 12:52 | Emergency (ER) | payer MEDICAID, SELFPAY ==
[2024-09-10 12:54] VITALS: BP 168/90; PULSE 52; RESP 18; TEMP 36.6; O2SAT 97; BMI 33.5
--- NOTE | 2024-09-10 13:00 | PC.NURSE ---
dr winchester at bedside
--- NOTE | 2024-09-10 13:11 | HMH.EDGENADL ---
Discharge Plan Disposition Patient Disposition: Home, Self-Care Prescriptions Prescriptions: New doxycycline hyclate 100 mg capsule 100 mg PO BID 10 Days Qty: 20 0RF No Action montelukast [Singulair] 10 mg tablet 10 mg PO DAILY Qty: 30 2RF atorvastatin 40 mg tablet 40 mg PO DAILY Qty: 90 3RF fenofibrate nanocrystallized 145 mg tablet 145 mg PO DAILY Qty: 90 3RF pantoprazole 20 mg tablet,delayed release (DR/EC) 20 mg PO DAILY Qty: 90 1RF cyanocobalamin (vitamin B-12) 500 mcg tablet 500 mcg PO DAILY Qty: 90 3RF aspirin 81 mg tablet,delayed release (DR/EC) See Rx Instructions .ROUTE .COMPLEX Qty: 90 0RF Dose Instruction: TAKE 1 TABLET BY MOUTH DAILY Rx Instructions: TAKE 1 TABLET BY MOUTH DAILY levothyroxine 25 mcg tablet 25 mcg PO DAILY Qty: 30 2RF losartan 100 mg tablet 100 mg PO DAILY Qty: 90 0RF amlodipine 2.5 mg tablet 2.5 mg PO DAILY Qty: 30 3RF Referrals Follow up/Referrals: Bernabe Fowler MD [Primary Care Provider] - See instructions Activity Restrictions/Add. Instructions Additional Instructions/Restrictions: No evidence of retained foreign body/tick however there is a small area of inflammation consistent with a soft tissue infection secondary to the bite. Doxycycline has been prescribed which would treat other tickborne illnesses in addition to superficial soft tissue infections. Please return with any significant worsening of your symptoms. Clinical Impressions Clinical Impression: Tick bite, Cellulitis of back, Bradycardia Instructions Patient Instructions: DI for Skin Abscess Print Language Print Language: Wolof Discharge ED Provider: Donnie Barboza General Adult HPI General Chief complaint: Skin/Abscess/Foreign Body Stated complaint: tick head in back, redness/tenderness at sight Time Seen by Provider: 09/10/24 12:59 Mode of Arrival: Ambulatory Source of Information: Patient Limitations: No Limitations Description of Symptoms (Recalled from ER Triage Doc. by RN): pt c/o tick bite to right arm. noted on tuesday, possibly fell off. redness noted to site. denies pain, fever or chills History of Present Illness HPI narrative: 49-year-old male presenting today with pain and localized tenderness around the tick bite that he noticed on Tuesday. Pulled the tick out but did not see to take side was concerned about possible retained foreign body. Denies any fevers chills. He does have a history of sinus bradycardia states he has been extensively worked up by building services engineer and was told that this was normal for him. Related Data Previous Rx's ?Medication ?Instructions ?Recorded atorvastatin 40 mg tablet 40 mg PO DAILY Cholesterol #90 tabs 08/08/23 fenofibrate nanocrystallized 145 145 mg PO DAILY Supplement #90 tabs 08/08/23 mg tablet cyanocobalamin (vitamin B-12) 500 500 mcg PO DAILY supplement #90 09/02/23 mcg tablet tabs pantoprazole 20 mg tablet,delayed 20 mg PO DAILY #90 tabs 06/25/24 release aspirin 81 mg tablet,delayed See Rx Instructions .Route 07/09/24 release .COMPLEX #90 tabs levothyroxine 25 mcg tablet 25 mcg PO DAILY #30 tabs 07/31/24 losartan 100 mg tablet 100 mg PO DAILY HTN #90 tabs 08/10/24 montelukast 10 mg tablet 10 mg PO DAILY #30 tabs 08/10/24 (Singulair) amlodipine 2.5 mg tablet 2.5 mg PO DAILY #30 tabs 08/30/24 doxycycline hyclate 100 mg capsule 100 mg PO BID 10 days #20 caps 09/10/24 Allergies Allergy/AdvReac Type Severity Reaction Status Date / Time No Known Allergies Allergy Verified 08/10/24 10:43 [facility] Disclaimer: The information contained in this section may have been updated after the patient was seen, as this information can be updated by other users. Medical History GERD (gastroesophageal reflux disease) Hypertension Currently normotensive Hyperlipidemia Hypothyroidism Atypical chest pain Surgical History Kidney stone Social History Smoking Status: Never smoker second hand exposure: No alcohol intake: never substance use type: marijuana current occupational status: employed Travel in the last 8 weeks: None household members: friend(s) housing: house marital status: Other Medical History Have you received the Flu Vaccine for this season: Yes Have you received the Pneumonia Vaccine: No ROS Obtained: Yes All systems reviewed & no additional complaints except as documented Physical Exam General General appearance: alert and in no apparent distress Respiratory Respiratory exam: Present normal lung sounds bilaterally Cardiovascular Cardiovascular exam: Present bradycardia Back Exam Back 1 view image: 1. Small area of erythema and tenderness no evidence of retained foreign body Neurological Exam Neurological exam: Present alert and oriented X3 Medical Decision Making Medical Records Screening: Per USPSTF and CDC recommendations, given the prevalence of disease in our region, it is our hospital?s policy to screen for HIV and viral Hepatitis for all patients aged 18 and over and those with ongoing risk factors. Binh Inquiry Pt receiving controlled substance: No Vital Signs: 09/10/24 12:54 Temperature 97.8 F Temperature Source Oral Pulse Rate [Radial] 52 L Respiratory Rate 18 Blood Pressure [Left Arm] 168/90 H Blood Pressure Mean [Left Arm] 116 Blood Pressure Source [Left Arm] Automatic Cuff Blood Pressure Position [Left Arm] Sitting 02 Sat by Pulse Oximetry 97 Oxygen Delivery Method Room Air Medical Decision Narrative: Patient with very small localized reaction to tick bite no evidence of erythema migrans or other signs or symptoms of other tickborne illnesses. Will go ahead given prophylaxis with doxycycline given these findings. Of note patient does have sinus bradycardia which she states is at his baseline did not workup carditis or any other association with Lyme disease at this point. Return precautions emphasized he was discharged in stable condition peer Critical Care Critical Care Time Critical Care Time: No
[2024-09-10 13:12] VITALS: BP 168/90; PULSE 52; RESP 18; TEMP 36.6; O2SAT 97
== END 2024-09-10 13:12 | disposition home or self-care (01) ==
PROVIDERS: Emergency Provider Student in an Organized Health Care Education/Training Program; PCP Family Medicine
DX: W57.XXXA Bitten or stung by nonvenomous insect and other nonvenomous arthropods, initial encounter (principal); R00.1 Bradycardia, unspecified; L03.312 Cellulitis of back [any part except buttock and flank]; S20.469A Insect bite (nonvenomous) of unspecified back wall of thorax, initial encounter
CPT/HCPCS: 99283

== ENCOUNTER 2025-02-01 10:40 | Outpatient (CLI) | payer MEDICAID, SELFPAY ==
[2025-02-01 11:23] LABS: Basophils # 0.1 K/mm3 (0-0.2); Basophils % 1.1 % (0.1-2.0); Eosinophils # 0.4 K/mm3 (0.0-0.4); Hematocrit 43.3 % (42.0-52.0); Hemoglobin 14.8 g/dL (14.1-18.0); Lymphocytes # 2.4 K/mm3 (0.7-4.5); Lymphocytes % 29.5 % (10-50); Mean Corpuscular HGB Conc 34.2 g/dL (31.8-35.4); Mean Corpuscular Hemoglobin 29.7 pg (27.0-31.2); Mean Corpuscular Volume 86.8 fl (80-94); Mean Platelet Volume 10.2 fl (7.4-10.4); Monocytes # 0.7 K/mm3 (0.1-1.0); Monocytes % 9.2 % (1.7-9.3); Neutrophils # 4.4 K/mm3 (1.8-7.8); Neutrophils % 54.7 % (37.0-80.0); Platelet Count 434 K/mm3 (142-424); Red Blood Count 4.99 M/mm3 (4.60-6.20); Red Cell Distribution Width 12.3 % (11.5-17.5)
[2025-02-01 12:20] LABS: Albumin Level 4.9 g/dl (3.5-5.0); Chloride 105 mmol/L (98-107); Potassium 4.2 mmoL/L (3.5-5.1); Sodium 140 mmol/L (136-145)
[2025-02-01 12:22] LABS: Alanine Aminotransferase 57 U/L (12-78); Anion Gap 13.2 mEq/L (5-15); Aspartate Amino Transferase 47 U/L (17-59); Blood Urea Nitrogen 18 mg/dl (9-20); Carbon Dioxide 26 mmol/L (22.0-30.0); Estimated Glomerular Filt Rate 64 ml/min (>60); GFR (African American) 78 ML/MIN (>60)
[2025-02-01 12:23] LABS: Alkaline Phosphatase 49 U/L (38-126); Bilirubin,Total 0.7 mg/dl (0.2-1.3); Calcium 9.7 mg/dl (8.4-10.2); Chol/HDL Ratio 6.4 (1-3.5); Cholesterol 224 mg/dl (140-200); Globulin 2.4 g/dL (1.3-3.2); Glucose 92 mg/dl (74-100); HDL Cholesterol 35 mg/dl (40-60); Total Protein,Serum 7.3 g/dl (6.3-8.2); Triglycerides 225 mg/dl (30-150); VLDL Cholesterol 45 mg/dL (0-40)
[2025-02-01 12:34] LABS: Direct LDL Cholesterol 143.75 mg/dL (100-129)
[2025-02-01 12:41] LABS: Hemoglobin A1C 5.7 % (4.0-6.0)
[2025-02-01 12:56] LABS: Thyroid Stimulating Hormone 7.09 uIU/mL (0.465-4.68)
[2025-02-01 13:05] LABS: HIV Combo NEGATIVE (Negative)
[2025-02-01 13:14] LABS: Hepatitis C Ab Qual. W/ RFX NEGATIVE (Negative)
[2025-02-01 14:18] LABS: Vitamin B12 902 pg/mL (239-931)
[2025-02-02 09:14] LABS: Mumps Abs, IgG <9.0 AU/mL (Immune >10.9); Rubella Antibodies, IgG >33.00 index (Immune >0.99); Varicella Zoster IgG Non Reactive (Non Reactive)
== END 2025-02-01 23:59 | disposition home or self-care (01) ==
LOC: LAB 10:42
PROVIDERS: PCP Family Medicine; Visit Provider Nurse Practitioner Family
DX: E03.9 Hypothyroidism, unspecified (principal); E78.2 Mixed hyperlipidemia; I10 Essential (primary) hypertension; E53.8 Deficiency of other specified B group vitamins; K21.9 Gastro-esophageal reflux disease without esophagitis
CPT/HCPCS: 36415; 80053; 80061; 82306; 82607; 83036; 84443; 85025; 86735; 86762; 86765; 86787; 86803; 87389

== ENCOUNTER 2025-09-17 09:40 | Outpatient (CLI) | payer MEDICAID, SELFPAY ==
[2025-09-17 18:04] LABS: Hematocrit 43.8 % (42.0-52.0); Hemoglobin 14.6 g/dL (14.1-18.0); Immature Granulocytes % 0.3 %; Mean Corpuscular HGB Conc 33.3 g/dL (31.8-35.4); Mean Corpuscular Hemoglobin 30.0 pg (27.0-31.2); Mean Corpuscular Volume 89.9 fl (80-94); Nucleated Red Blood Cells % 0 %; Platelet Count 460 K/mm3 (142-424); Red Blood Count 4.87 M/mm3 (4.60-6.20); Red Cell Distribution Width-SD 41.5 fL; White Blood Count 9.0 K/mm3 (4.8-10.8)
[2025-09-17 18:24] LABS: Albumin Level 4.3 g/dl (3.5-5.0); Chloride 106 mmol/L (98-107); Potassium 4.2 mmoL/L (3.5-5.1); Sodium 138 mmol/L (136-145)
[2025-09-17 18:26] LABS: Blood Urea Nitrogen 19 mg/dl (9-20); Creatinine,Serum 1.30 mg/dl (0.66-1.25); Estimated Glomerular Filt Rate 58 ml/min (>60); GFR (African American) 71 ML/MIN (>60)
[2025-09-17 18:27] LABS: Alanine Aminotransferase 42 U/L (12-78); Albumin/Globulin Ratio 1.5 (1.1-1.8); Alkaline Phosphatase 57 U/L (38-126); Anion Gap 12.2 mEq/L (5-15); Aspartate Amino Transferase 37 U/L (17-59); Bilirubin,Total 0.7 mg/dl (0.2-1.3); Calcium 9.1 mg/dl (8.4-10.2); Carbon Dioxide 24 mmol/L (22.0-30.0); Cholesterol 205 mg/dl (140-200); Globulin 2.9 g/dL (1.3-3.2); Glucose 95 mg/dl (74-100); HDL Cholesterol 28 mg/dl (40-60); Total Protein,Serum 7.2 g/dl (6.3-8.2); Triglycerides 229 mg/dl (30-150)
[2025-09-17 18:54] LABS: 25-OH Vitamin D, Total 24.3 ng/mL (30-100)
[2025-09-17 18:57] LABS: Thyroid Stimulating Hormone 10.50 uIU/mL (0.465-4.68)
== END 2025-09-17 23:59 | disposition home or self-care (01) ==
LOC: LAB.DROPOF 09-18 14:10
PROVIDERS: PCP Nurse Practitioner Family; Visit Provider Nurse Practitioner Family
DX: E78.5 Hyperlipidemia, unspecified (principal); I10 Essential (primary) hypertension; E03.9 Hypothyroidism, unspecified; E55.9 Vitamin D deficiency, unspecified; Z12.5 Encounter for screening for malignant neoplasm of prostate
CPT/HCPCS: 80053; 80061; 82306; 84443; 85025; G0103